=== PATIENT | male | born 1995 | race Caucasian/White ===

== ENCOUNTER 2018-11-15 18:19 | Emergency (ER) | payer BC, OTHER ==
[~2018-11-15] VITALS: Ht 170.2 cm; Wt 81.6 kg
[2018-11-15 18:25] VITALS: BP_SYST 159
[2018-11-15 21:00] VITALS: BP_SYST 130
== END 2018-11-15 21:00 | disposition home or self-care (01) ==
LOC: SED 18:19
DX: J02.9 Acute pharyngitis, unspecified (principal); R03.0 Elevated blood-pressure reading, without diagnosis of hypertension
CPT/HCPCS: 36415; 86403; 87081; 99283